=== PATIENT | female | born 1995 | race American Indian/Alaskan Native ===

== ENCOUNTER 2019-12-22 11:11 | Emergency (ER) | payer SELFPAY ==
[2019-12-22] MEDS ORDERED: ACETAMINOPHEN 325 MG TAB PO STA (11:19)
[2019-12-22] MEDS ORDERED: ONDANSETRON 4 MG/2 ML INJ ONE (11:33)
[2019-12-22] MEDS ORDERED: ONDANSETRON 4 MG/2 ML INJ IV ONE (11:34)
[2019-12-22] MEDS ORDERED: SODIUM CHLORIDE 0.9% 1000 ML 1,000 ML IV ONE ×3 (11:53→15:52)
[2019-12-22] MEDS ORDERED: SODIUM CHLORIDE 0.9% 1000 ML 2,000 ML ONE (11:55)
[2019-12-22 12:14] LABS: Basophils % (Auto) 0.3 % (0.0-1.8); Eosinophils # (Auto) 0.1 K/mm3 (0.0-0.4); Eosinophils % (Auto) 0.7 % (0.0-4.3); Hemoglobin 12.8 gm/dl (10.1-14.3); Lymphocytes # (Auto) 0.7 K/mm3 (1.2-5.4); Lymphocytes % (Auto) 6.3 % (13.4-35.0); Mean Corpuscular HGB Conc 32 % (30-34); Mean Corpuscular Volume 82 fl (79-97); Monocytes # (Auto) 0.8 K/mm3 (0.0-0.8); Monocytes % (Auto) 7.2 % (0.0-7.3); Platelet Count 203 K/mm3 (140-440); Red Blood Count 4.87 M/mm3 (3.65-5.03); Red Cell Distribution Width 14.1 % (13.2-15.2)
--- NOTE | 2019-12-22 12:20 | XRay Report ---
CHEST 1 VIEW INDICATION: fever cough. COMPARISON: None. FINDINGS: Support devices: None. Heart: Normal. Lungs/Pleura: No acute pulmonary or pleural findings. IMPRESSION: 1. No acute findings. Signer Name: Quinn Erickson MD Signed: 12/22/2019 12:16 PM Workstation Name: [id number]
[2019-12-22 12:32] LABS: Alanine Aminotransferase 9 units/L (7-56); Albumin 4.6 g/dL (3.9-5); BUN/Creatinine Ratio 15; Blood Urea Nitrogen 9 mg/dL (7-17); Calcium 9.5 mg/dL (8.4-10.2); Hemolysis Index 3
[2019-12-22 12:37] LABS: Bilirubin,Direct < 0.2 mg/dL (0-0.2)
[2019-12-22] MEDS ORDERED: PIPERACIL/TAZOBACTA 4.5/NS 100 4.5 GM/100 ML VIAL IV ONE (13:26)
[2019-12-22 14:47] LABS: Bilirubin,Urine NEG (Negative); Blood,Urine LG (Negative); Color,Urine Yellow (Yellow); Mucus,Urine FEW /HPF; Protein,Urine <15 mg/dL mg/dL (Negative); Urobilinogen,Urine < 2.0 mg/dL (<2.0); WBC,Urine < 1.0 /HPF (0.0-6.0)
--- NOTE | 2019-12-22 15:45 | Emergency Department Report ---
<GLENN GIBSON - Last Filed: 12/22/19 23:06> ED Abdominal Pain HPI - General Chief Complaint: Abdominal Pain Stated Complaint: FLU SYM/ABD PAIN/COUGH Time Seen by Provider: 12/22/19 11:52 - Related Data Previous Rx's Medication Instructions Recorded Last Taken Type Ondansetron [Zofran Odt] 4 mg PO Q8HR #6 tab.rapdis 12/22/19 Unknown Rx oxyCODONE /ACETAMINOPHEN [Percocet 1 tab PO Q6HR PRN #10 tablet 12/22/19 Unknown Rx 5/325] Allergies Allergy/AdvReac Type Severity Reaction Status Date / Time No Known Allergies Allergy Unverified 12/22/19 11:13 ED Past Medical Hx - Medications Home Medications: Home Medications Medication Instructions Recorded Confirmed Last Taken Type Ondansetron [Zofran Odt] 4 mg PO Q8HR #6 tab.rapdis 12/22/19 Unknown Rx oxyCODONE /ACETAMINOPHEN [Percocet 1 tab PO Q6HR PRN #10 tablet 12/22/19 Unknown Rx 5/325] ED Course - Reevaluation(s) Reevaluation #2: 12/22/19 16:54 DR Tirado notified of ct result, will come to evaluate patient. ED Medical Decision Making - Lab Data Result diagrams: 12/22/19 11:45 12/22/19 11:45 ED Disposition Clinical Impression: Fever, Abdominal pain Disposition: DC-01 TO HOME OR SELFCARE Is pt being admited?: No Condition: Stable Prescriptions: oxyCODONE /ACETAMINOPHEN [Percocet 5/325] 1 tab PO Q6HR PRN #10 tablet PRN Reason: Pain Ondansetron [Zofran Odt] 4 mg PO Q8HR #6 tab.rapdis Referrals: WARD MARSHALL MD [Primary Care Provider] - 3-5 Days <LORENA MUIR - Last Filed: 12/23/19 15:42> ED Abdominal Pain HPI - General Source: patient Mode of arrival: Ambulatory Limitations: No Limitations - History of Present Illness Initial Comments: 24-year-old female who states that she was well yesterday. Early this morning she experienced left flank pain which seems to radiate around to the lower quadrants of the abdomen. She denied diarrhea nausea or vomiting. She presented to the emergency department with SIRS and a temperature of 103. She states she has had no prior abdominal surgery. She denied vaginal discharge or problems with her periods. She denied any symptoms. She states she has not had pain like this in the in the past. MD Complaint: abdominal pain -: Gradual, days(s) Location: LLQ, RLQ Radiation: none Migration to: no migration, L flank (Started in the left flank and radiated forward) Severity scale (0 -10): 4 Quality: aching Consistency: constant Improves With: nothing Worsens With: nothing Associated Symptoms: denies other symptoms ED Review of Systems ROS: Stated complaint: FLU SYM/ABD PAIN/COUGH Other details as noted in HPI Constitutional: denies: chills, fever Eyes: denies: eye pain, eye discharge, vision change ENT: denies: ear pain, throat pain Respiratory: denies: cough, shortness of breath, wheezing Cardiovascular: denies: chest pain, palpitations Endocrine: no symptoms reported Gastrointestinal: abdominal pain. denies: nausea, diarrhea Genitourinary: denies: urgency, dysuria, discharge Musculoskeletal: denies: back pain, joint swelling, arthralgia Skin: denies: rash, lesions Neurological: denies: headache, weakness, paresthesias Psychiatric: denies: anxiety, depression Hematological/Lymphatic: denies: easy bleeding, easy bruising ED Past Medical Hx - Past Medical History Previous Medical History?: No - Social History Smoking Status: Never Smoker Substance Use Type: None ED Physical Exam - General Limitations: No Limitations General appearance: alert, in no apparent distress - Head Head exam: Present: atraumatic, normocephalic - Eye Eye exam: Present: normal appearance. Absent: scleral icterus - ENT ENT exam: Present: mucous membranes moist - Neck Neck exam: Present: normal inspection. Absent: tenderness, meningismus - Respiratory Respiratory exam: Present: normal lung sounds bilaterally. Absent: respiratory distress - Cardiovascular Cardiovascular Exam: Present: normal rhythm, tachycardia. Absent: systolic mur mur, diastolic murmur, rubs, gallop - GI/Abdominal GI/Abdominal exam: Present: soft, tenderness (Tenderness in bilateral lower quadrants which is mild to moderate without peritoneal signs.), normal bowel sounds. Absent: distended, guarding, rebound, rigid - Extremities Exam Extremities exam: Present: normal inspection - Back Exam Back exam: Present: normal inspection. Absent: CVA tenderness (R), CVA tenderness (L) - Neurological Exam Neurological exam: Present: alert, oriented X3, CN II-XII intact. Absent: motor sensory deficit - Psychiatric Psychiatric exam: Present: normal affect, normal mood - Skin Skin exam: Present: warm, dry, intact, normal color. Absent: rash ED Course Vital Signs 12/22/19 12/22/19 12/22/19 11:16 11:41 12:24 Temperature 103.0 F H Pulse Rate 144 H 123 H Respiratory 18 17 29 H Rate Blood Pressure 113/67 Blood Pressure [Left] O2 Sat by Pulse 99 99 Oximetry 12/22/19 12/22/19 12/22/19 12:29 12:30 13:00 Temperature 101.4 F H Pulse Rate 131 H 133 H 126 H Respiratory 18 22 25 H Rate Blood Pressure 96/57 103/58 Blood Pressure 96/57 [Left] O2 Sat by Pulse 100 100 100 Oximetry 12/22/19 12/22/19 12/22/19 14:00 14:46 15:46 Temperature 103.2 F H Pulse Rate 118 H 117 H Respiratory 21 14 Rate Blood Pressure 108/54 91/48 91/48 Blood Pressure [Left] O2 Sat by Pulse 99 99 98 Oximetry 12/22/19 12/22/19 12/22/19 16:00 16:16 16:23 Temperature Pulse Rate 129 H 133 H 123 H Respiratory 28 H 16 22 Rate Blood Pressure 94/67 99/62 Blood Pressure 96/69 [Left] O2 Sat by Pulse 99 100 100 Oximetry 12/22/19 12/22/19 12/22/19 16:45 17:00 17:15 Temperature Pulse Rate 122 H 111 H 111 H Respiratory 20 24 27 H Rate Blood Pressure 96/69 110/80 93/65 Blood Pressure [Left] O2 Sat by Pulse 100 100 99 Oximetry 12/22/19 12/22/19 12/22/19 17:18 17:45 18:15 Temperature 102.9 F H Pulse Rate 110 H 133 H 113 H Respiratory 28 H 21 29 H Rate Blood Pressure 101/67 88/64 Blood Pressure 110/80 [Left] O2 Sat by Pulse 95 100 97 Oximetry 12/22/19 12/22/19 12/22/19 18:31 18:45 19:00 Temperature Pulse Rate 142 H 120 H 114 H Respiratory 22 13 19 Rate Blood Pressure 97/61 97/61 96/48 Blood Pressure [Left] O2 Sat by Pulse 89 99 97 Oximetry 12/22/19 12/22/19 12/22/19 19:15 19:30 19:45 Temperature Pulse Rate 115 H 112 H 133 H Respiratory 25 H 16 19 Rate Blood Pressure 96/48 105/42 96/48 Blood Pressure [Left] O2 Sat by Pulse 97 97 Oximetry 12/22/19 12/22/19 12/22/19 20:00 20:15 20:30 Temperature Pulse Rate 108 H 104 H 108 H Respiratory 20 20 20 Rate Blood Pressure 103/51 103/51 96/45 Blood Pressure [Left] O2 Sat by Pulse 99 99 99 Oximetry 12/22/19 12/22/19 12/22/19 20:45 21:00 21:15 Temperature Pulse Rate 106 H 108 H 93 H Respiratory 19 17 15 Rate Blood Pressure 96/45 95/65 95/65 Blood Pressure [Left] O2 Sat by Pulse 100 75 L 97 Oximetry 12/22/19 12/22/19 12/22/19 21:30 21:45 22:00 Temperature Pulse Rate 94 H 96 H 110 H Respiratory 18 23 12 Rate Blood Pressure 109/69 109/69 109/67 Blood Pressure [Left] O2 Sat by Pulse 95 94 85 Oximetry 12/22/19 22:15 Temperature Pulse Rate 114 H Respiratory 13 Rate Blood Pressure 109/67 Blood Pressure [Left] O2 Sat by Pulse 100 Oximetry - Reevaluation(s) Reevaluation #1: Patient was given Zosyn empirically. She was given IV fluids. She remained somewhat tachycardic. A CT of the abdomen and pelvis has been performed. Results are pending. Dr. Tirado of the hospitalist states he will come down and make a final disposition. The current emergency physician is aware of what is pending above. Patient remains febrile with temperature of 103. She was given Tylenol. 12/22/19 15:51 Reevaluation #2: Patient was seen by the hospitalist and discharged. 12/23/19 15:41 ED Medical Decision Making - Lab Data Result diagrams: 12/22/19 11:45 12/22/19 11:45 Laboratory Results - last 24 hr 12/22/19 12/22/19 12/22/19 11:45 11:45 11:45 WBC 11.2 H RBC 4.87 Hgb 12.8 Hct 40.0 MCV 82 MCH 26 L MCHC 32 RDW 14.1 Plt Count 203 Lymph % (Auto) 6.3 L [place] % (Auto) 7.2 Eos % (Auto) 0.7 Baso % (Auto) 0.3 Lymph # 0.7 L [place] # 0.8 Eos # 0.1 Baso # 0.0 Seg Neutrophils % 85.5 H Seg Neutrophils # 9.6 H Sodium 138 Potassium 3.5 L Chloride 100.5 Carbon Dioxide 20 L Anion Gap 21 BUN 9 Creatinine 0.6 L Estimated GFR > 60 BUN/Creatinine Ratio 15 Glucose 105 H Lactic Acid 2.30 H* Calcium 9.5 Total Bilirubin 0.30 Direct Bilirubin < 0.2 Indirect Bilirubin 0.1 AST 19 ALT 9 Alkaline Phosphatase 90 Total Protein 7.8 Albumin 4.6 Albumin/Globulin Ratio 1.4 HCG, Qual Urine Color Urine Turbidity Urine pH Ur Specific Trail Urine Protein Urine Glucose (UA) Urine Ketones Urine Blood Urine Nitrite Urine Bilirubin Urine Urobilinogen Ur Leukocyte Esterase Urine WBC (Auto) Urine RBC (Auto) U Epithel Cells (Auto) Urine Mucus Influenza A (Rapid) Influenza B (Rapid) 12/22/19 12/22/19 12/22/19 11:45 11:48 13:07 WBC RBC Hgb Hct MCV MCH MCHC RDW Plt Count Lymph % (Auto) [place] % (Auto) Eos % (Auto) Baso % (Auto) Lymph # [place] # Eos # Baso # Seg Neutrophils % Seg Neutrophils # Sodium Potassium Chloride Carbon Dioxide Anion Gap BUN Creatinine Estimated GFR BUN/Creatinine Ratio Glucose Lactic Acid Calcium Total Bilirubin Direct Bilirubin Indirect Bilirubin AST ALT Alkaline Phosphatase Total Protein Albumin Albumin/Globulin Ratio HCG, Qual Negative Urine Color Yellow Urine Turbidity Slightly-cloudy Urine pH 5.[address] 1.016 Urine Protein <15 mg/dl Urine Glucose (UA) Neg Urine Ketones Neg Urine Blood Lg Urine Nitrite Neg Urine Bilirubin Neg Urine Urobilinogen < 2.0 Ur Leukocyte Esterase Neg Urine WBC (Auto) < 1.0 Urine RBC (Auto) 15.0 U Epithel Cells (Auto) 11.0 Urine Mucus Few Influenza A (Rapid) Negative Influenza B (Rapid) Negative 12/22/19 14:31 WBC RBC Hgb Hct MCV MCH MCHC RDW Plt Count Lymph % (Auto) [place] % (Auto) Eos % (Auto) Baso % (Auto) Lymph # [place] # Eos # Baso # Seg Neutrophils % Seg Neutrophils # Sodium Potassium Chloride Carbon Dioxide Anion Gap BUN Creatinine Estimated GFR BUN/Creatinine Ratio Glucose Lactic Acid 1.30 Calcium Total Bilirubin Direct Bilirubin Indirect Bilirubin AST ALT Alkaline Phosphatase Total Protein Albumin Albumin/Globulin Ratio HCG, Qual Urine Color Urine Turbidity Urine pH Ur Specific Trail Urine Protein Urine Glucose (UA) Urine Ketones Urine Blood Urine Nitrite Urine Bilirubin Urine Urobilinogen Ur Leukocyte Esterase Urine WBC (Auto) Urine RBC (Auto) U Epithel Cells (Auto) Urine Mucus Influenza A (Rapid) Influenza B (Rapid) Critical care attestation.: If time is entered above; I have spent that time in minutes in the direct care of this critically ill patient, excluding procedure time.
[2019-12-22] MEDS ORDERED: ACETAMINOPHEN 325 MG TAB PO ONE (16:13)
--- NOTE | 2019-12-22 16:35 | Cat Scan Report ---
CT ABDOMEN AND PELVIS WITH IV CONTRAST INDICATION: lower abd and l flank pain. COMPARISON: None available. TECHNIQUE: All CT scans at this facility use dose modulation, automated exposure control, iterative reconstructi on or weight based dosing, when appropriate, to reduce radiation dose to as low as reasonably achieva ble. FINDINGS: Lung Bases: No significant abnormality. Skeletal System: No acute abnormality. ABDOMEN: Liver: No significant abnormality. Gallbladder: No significant abnormality. Bile Ducts: No significant abnormality. Pancreas: No significant abnormality. Spleen: No significant abnormality. Adrenals: No significant abnormality. Right Kidney: No significant abnormality. Left Kidney: No significant abnormality. Upper GI tract: Stomach and duodenum are unremarkable. There is mild wall thickening within distal lo ops of small bowel midline lower abdomen. Lymph Nodes: No significant adenopathy. Aorta: No significant abnormality. Additional Findings: No significant abnormality. PELVIS: Colon: No acute abnormality. Urinary Bladder and Distal Ureters: No significant abnormality. Appendix: No significant abnormality. Lymph Nodes: No significant adenopathy. Additional Findings: There is mild heterogeneous enhancement within the myometrium which may be due t o the presence of uterine fibroids but is nonspecific. Ovaries are unremarkable. IMPRESSION: 1. Mild small bowel wall thickening in the lower abdomen with mild injection/stranding mesentery. Th trang findings are suggestive of enteritis. The terminal ileum is unremarkable. 2. Uterine/myometrium enhancement is heterogeneous, this could be due to the presence of fibroids bu t is nonspecific. Signer Name: Quinn Erickson MD Signed: 12/22/2019 4:31 PM Workstation Name: [id number]
--- NOTE | 2019-12-22 17:44 | Event Note ---
Date: 12/22/19 Patient reevaluated Patient has been vomiting 4-5 times Now resolved Abdominal pain better Discharge diagnosis acute gastroenteritis Clear liquids for 1 day and then advance diet Patient was advised Gatorade and apple juice no orange juice. Zofran 4 mg ODT every 6 as needed Low potassium borderline supplemented Discharge home Follow-up with PCP
[2019-12-22] MEDS ORDERED: POTASSIUM CHLORIDE ER 20 MEQ TAB PO ONE (18:00)
[2019-12-22 22:20] VITALS: BP 109/67
== END 2019-12-22 21:00 | disposition home or self-care (01) ==
LOC: ED 11:11
DX: R10.30 Lower abdominal pain, unspecified (principal); R50.9 Fever, unspecified; R05 Cough; R65.10 Systemic inflammatory response syndrome (SIRS) of non-infectious origin without acute organ dysfunction; Z79.899 Other long term (current) drug therapy
CPT/HCPCS: 36415; 71045; 74177; 80048; 80076; 81001; 82140; 84703; 85025; 87040; 87086; 87400; 93005; 93010; 96365; 96375; 99285; J2405; J2543; J7030; Q9967

== ENCOUNTER 2020-10-06 20:15 | Inpatient (IN) | payer MEDICAID ==
[2020-10-06] MEDS ORDERED: ZOLPIDEM 5 MG TAB PO PRN (22:37)
[2020-10-06] MEDS ORDERED: BUTORPHANOL 2 MG/1 ML INJ IV PRN (22:37)
[2020-10-06] MEDS ORDERED: LACTATED RINGERS 1,000 ML IV SCH (22:45)
[2020-10-07] MEDS ORDERED: DINOPROSTONE 10 MG VAG SUPP VG ONE (00:30)
[2020-10-07 00:38] LABS: Hematocrit 35.3 % (30.3-42.9); Hemoglobin 11.8 gm/dl (10.1-14.3); Mean Corpuscular HGB Conc 33 % (30-34); Mean Corpuscular Volume 82 fl (79-97); Platelet Count 127 K/mm3 (140-440); Red Blood Count 4.29 M/mm3 (3.65-5.03); Red Cell Distribution Width 17.1 % (13.2-15.2)
[2020-10-07] MEDS ORDERED: OXYTOCIN DRIP 30,000 MILLIUNITS/500 ML BAG IV ONE (01:32)
[2020-10-07] MEDS ORDERED: ACETAMINOPHEN 325 MG TAB PO PRN (01:35)
[2020-10-07] MEDS ORDERED: PROMETHAZINE 25 MG TAB PO PRN ×2 (01:35→20:25)
[2020-10-07] MEDS ORDERED: MINERAL OIL 30 ML ORAL LIQD PO PRN (01:35)
[2020-10-07] MEDS ORDERED: AMPICILLIN/NS 2 GM/100 ML 2 GM/100 ML BAG IV ONE (01:35)
[2020-10-07] MEDS ORDERED: LIDOCAINE (2%) 20 MG/1 ML VIAL 20 ML MDV INFILTRATI ONE (01:35)
[2020-10-07] MEDS ORDERED: TERBUTALINE 1 MG/1 ML INJ SUB-Q PRN (01:35)
[2020-10-07] MEDS ORDERED: OXYTOCIN DRIP 30 UNITS/500 ML BAG IV SCH (02:00)
[2020-10-07] MEDS: LACTATED RINGERS 1,000 ML IV SCH ×6 (03:01→14:15)
--- NOTE | 2020-10-07 05:13 | History and Physical Report ---
History of Present Illness Date of examination: 10/07/20 Date of admission: 10/06/20 20:15 Chief complaint: Induction of labor for intrauterine growth restriction History of present illness: 25-year-old -0-0-1 at 39+1 weeks who presents for induction of labor deck secondary to asymmetrical intrauterine growth restriction. The patient is a transfer care at 29 weeks estimated gestational age. course is also complicated by positive GBS status, pericardial effusion, and intrauterine growth restriction. Past History Past Medical History: no pertinent history Past Surgical History: no surgical history Social history: single - Obstetrical History Expected Date of Delivery: 10/13/20 Actual Gestation: 39 Week(s) 1 Day(s) : 2 Para: 1 Hx # Term Pregnancies: 1 Number of Pregnancies: 0 Spontaneous Abortions: 0 Induced : 0 Number of Living Children: 1 Medications and Allergies Allergies Allergy/AdvReac Type Severity Reaction Status Date / Time No Known Allergies Allergy Unverified 12/22/19 11:13 Home Medications Medication Instructions Recorded Confirmed Last Taken Type Ondansetron [Zofran Odt] 4 mg PO Q8HR #6 tab.rapdis 12/22/19 Unknown Rx oxyCODONE /ACETAMINOPHEN [Percocet 1 tab PO Q6HR PRN #10 tablet 12/22/19 Unknown Rx 5/325] Active Meds: Active Medications Acetaminophen (Tylenol) 650 mg PO Q4H PRN PRN Reason: Pain, Mild (1-3) Butorphanol Tartrate (Stadol) 2 mg IV Q2H PRN PRN Reason: Labor Pain Ephedrine Sulfate (Ephedrine Sulfate) 10 mg IV Q2M PRN PRN Reason: Hypotension Lactated Ringer's (Lactated Ringers) 1,000 mls @ 125 mls/hr IV DIRECT VADIM Last Admin: 10/07/20 03:01 Dose: 125 mls/hr Documented by: Oxytocin/Sodium Chloride (Pitocin/Ns 30 Unit/500ml) 30 units in 500 mls @ 40 mls/hr IV TITR VADIM; Protocol Ampicillin Sodium (Ampicillin/Ns 1 Gm/50 Ml) 1 gm in 50 mls @ 100 mls/hr IV Q4HR VADIM; Protocol Mineral Oil (Mineral Oil) 30 ml PO QHS PRN PRN Reason: Constipation Promethazine HCl (Phenergan) 25 mg PO Q6H PRN PRN Reason: Nausea And Vomiting Terbutaline Sulfate (Brethine) 0.25 mg SUB-Q ONCE PRN PRN Reason: Hyperstimulation/Hypertonicity Zolpidem Tartrate (Ambien) 5 mg PO QHS PRN PRN Reason: Sleep Review of Systems All systems: negative Genitourinary: no leakage of fluid - Vital Signs Vital signs: Vital Signs Pulse BP 126 H 123/73 10/06/20 20:39 10/06/20 20:39 Temp Pulse Resp BP Pulse Ox 97.9 F 106 H 18 102/60 92 10/07/20 04:30 10/07/20 05:07 10/07/20 04:30 10/07/20 04:44 10/07/20 05:07 - Physical Exam Breasts: Positive: deferred Cardiovascular: Regular rate Lungs: Positive: Clear to auscultation Abdomen: Positive: normal appearance - Obstetrical Cervical Dilatation: 4 Results Result Diagrams: 10/07/20 00:14 Abnormal lab results 10/07/20 Range/Units 00:14 MCH 27 L (28-32) pg RDW 17.1 H (13.2-15.2) % Plt Count 127 L (140-440) K/mm3 All other labs normal. Assessment and Plan - Patient Problems (1) IUGR (intrauterine growth restriction) Current Visit: Yes Status: Acute Plan to address problem: Admit for induction of labor (2) IUGR (intrauterine growth restriction) Current Visit: Yes Status: Acute
[2020-10-07] MEDS: AMPICILLIN/NS 1 GM/50 ML 1 GM/50 ML BAG IV SCH ×3 (06:45→16:37)
[2020-10-07] MEDS: OXYTOCIN DRIP 30 UNITS/500 ML BAG IV SCH ×2 (08:50→17:03)
[2020-10-07] MEDS ORDERED: ONDANSETRON 4 MG/2 ML INJ IV PRN ×2 (10:00→20:25)
--- NOTE | 2020-10-07 10:00 | Anesthesia Consultation ---
Anesthesia Consult and Med Hx Date of service: 10/07/20 - Airway Anesthetic Teeth Evaluation: Good ROM Head & Neck: Adequate Mental/Hyoid Distance: Adequate Mallampati Class: Class II Intubation Access Assessment: Probably Good - Pulmonary Exam CTA: Yes - Cardiac Exam Cardiac Exam: RRR - Pre-Operative Health Status ASA Pre-Surgery Classification: ASA2 Proposed Anesthetic Plan: Epidural - Pulmonary Hx Smoking: No Hx Asthma: No COPD: No Hx Pneumonia: No Hx Sleep Apnea: No - Cardiovascular System Hx Hypertension: No Hx Heart Attack/AMI: No Hx Angina: No - Central Nervous System Hx Seizures: No Hx Psychiatric Problems: No - Gastrointestinal Hx Gastroesophageal Reflux Disease: No - Endocrine Hx Renal Disease: No Hx End Stage Renal Disease: No Hx Insulin Dependent Diabetes: No Hx Non-Insulin Dependent Diabetes: No Hx Hypothyroidism: No Hx Hyperthyroidism: No - Hematic Hx Anemia: No Hx Sickle Cell Disease: No - Other Systems Hx Alcohol Use: No
[2020-10-07] MEDS ORDERED: NALOXONE 2 MG/2 ML INJ IV PRN (10:30)
[2020-10-07] MEDS ORDERED: diphenhydrAMINE 50 MG/ML VIAL IV PRN (10:30)
[2020-10-07] MEDS ORDERED: NalbUPHINE 10 MG/1 ML INJ IV PRN (10:30)
--- NOTE | 2020-10-07 10:30 | Progress Note ---
Labor Epidural - Labor Epidural Start Time: 10:08 Stop Time: 10:26 Performed by:: RANGEL MITCHELL Procedure: Patient is requesting a laboring epidural for laboring pain. Patient IDed, H&P reviewed, all questions and concerns were answered, and consent was signed. Timeout was performed at bedside. Patient in sitting position. Sterile prep and drape was performed. 3ml of 1% lidocaine skin wheal at L[3]- L [4]. 18- gauge Touhy epidural needle was advanced to loss of resistance with air technique. Negative CSF negative blood. Epidural catheter advanced to [15] centimeters. [-] Aspiration [-] test dose. Sterile dressing applied. Patient tolerated procedure.
[2020-10-07] MEDS ORDERED: fentaNYL-BUPIV 2 MCG/ML-0.125% 200 MCG/100 ML BAG EPIDURAL SCH (11:00)
[2020-10-07] MEDS: ePHEDrine SULFATE 50 MG/1 ML INJ IV PRN ×2 (12:41→12:57)
--- NOTE | 2020-10-07 16:04 | Event Note ---
Date: 10/07/20 Pt comfortable with epidural. Pt experienced SROM at 1400 pm. SVE: /2. Continue routine intrapartum care.
--- NOTE | 2020-10-07 17:25 | Procedure Note ---
OB Delivery Note - Delivery Date of Delivery: 10/07/20 Surgeon: TOBY MAIN Estimated blood loss: other (400 mL) - Vaginal Delivery presentation: vertex Delivery position: OA Intrapartum events: PROM->1hr before delivery, decreased FHT variability, mult.variable deceleratio Delivery induction: oxytocin Delivery augmentation: pitocin Delivery monitor: external FHT, external uterine Route of delivery: Delivery placenta: spontaneous Episiotomy: none Delivery laceration: 1st degree Delivery repair: vicryl Anesthesia: epidural - A at 1 minute: 6 at 5 minutes: 9 Gender: Male (3290g (7lb 4oz) @ 1507 pm)
[2020-10-07] MEDS ORDERED: miSOPROStol 200 MCG TAB PR ONE (19:26)
[2020-10-07] MEDS ORDERED: METHYLERGONOVINE MALEATE 0.2 MG/ML VIAL IM ONE (19:28)
[2020-10-07] MEDS ORDERED: WITCH HAZEL/ GLYCERIN PAD TP PRN (20:25)
[2020-10-07] MEDS ORDERED: HYDROcodone/ACETAMINOPHEN 5-325 MG TAB PO PRN (20:25)
[2020-10-07] MEDS ORDERED: MAGNESIUM HYDROXIDE (MOM) ORAL LIQD UDC PO PRN (20:25)
[2020-10-07] MEDS ORDERED: LANOLIN/ZINC/DIMETHICONE (LANSINOH) 7 GM TP PRN ×2 (20:25)
[2020-10-07] MEDS ORDERED: BENZOCAINE/MENTHOL 20/0.5% TOP SPRAY 56 GM TP PRN (20:25)
[2020-10-07] MEDS ORDERED: PROMETHAZINE 25 MG RECT SUPP PR PRN (20:25)
[2020-10-07] MEDS ORDERED: diphenhydrAMINE 25 MG CAP PO PRN (20:25)
[2020-10-07] MEDS: IBUPROFEN 600 MG TAB PO SCH (21:40)
[2020-10-07] MEDS: FERROUS SULFATE 325 MG TAB PO SCH (21:40)
[2020-10-08] MEDS: IBUPROFEN 600 MG TAB PO SCH ×2 (04:04→12:28)
[2020-10-08] MEDS ORDERED: DIPHtheria,PERTUSSIS(ACELL),TETANUS VACCINE/PF 0.5 ML VIAL IM ONE (06:00)
--- NOTE | 2020-10-08 07:46 | Progress Note ---
Assessment and Plan A: PPD1 s/p at term. P: Routine care with anticipated discharge at 24hrs . Subjective - Subjective Date of service: 10/08/20 Principal diagnosis: S/P at Term Interval history: PPD1 s/p at term. Patient has no complaints at this time. Patient reports: appetite normal, voiding normally, pain well controlled, ambulating normally : doing well Objective - Vital Signs Latest vital signs: Vital Signs Temp Pulse Resp BP BP Pulse Ox 10/08/20 05:40 98.0 F 110 H 20 95/43 98 10/08/20 01:49 98.2 F 113 H 20 112/77 95 10/07/20 20:30 99.1 F 114 H 18 116/66 98 10/07/20 19:21 111 H 100 10/07/20 19:16 95 H 104/65 100 10/07/20 19:11 110 H 87 10/07/20 19:06 119 H 96 10/07/20 19:01 105 H 99/56 100 10/07/20 18:56 103 H 100 10/07/20 18:51 107 H 100 10/07/20 18:46 112 H 108/62 97 10/07/20 18:45 98.8 F 102 H 16 108/62 100 10/07/20 18:41 123 H 98 10/07/20 18:36 105 H 98 10/07/20 18:31 113 H 106/69 98 10/07/20 18:26 114 H 98 10/07/20 18:21 109 H 100 10/07/20 18:20 120 H 106/72 10/07/20 18:16 115 H 106/60 100 10/07/20 18:11 112 H 98 10/07/20 18:06 109 H 98 10/07/20 18:01 114 H 100/65 100 10/07/20 18:00 98.4 F 16 10/07/20 17:56 123 H 100 10/07/20 17:51 115 H 100 10/07/20 17:46 120 H 100 10/07/20 17:45 98.1 F 126 H 16 91/61 10/07/20 17:41 119 H 99 10/07/20 17:36 123 H 96 10/07/20 17:31 114 H 103/66 98 10/07/20 17:30 98.3 F 110 H 18 103/66 99 10/07/20 17:26 123 H 98 10/07/20 17:24 123 H 102/59 10/07/20 17:21 111 H 100 10/07/20 17:16 114 H 98 10/07/20 17:14 126 H 110/65 10/07/20 17:11 100 10/07/20 17:06 146 H 99 10/07/20 17:05 142 H 117/79 10/07/20 17:01 132 H 100 10/07/20 16:56 125 H 100 10/07/20 16:55 125 H 102/64 10/07/20 16:51 119 H 98 10/07/20 16:46 131 H 99 10/07/20 16:44 123 H 94/54 10/07/20 16:41 130 H 100 10/07/20 16:36 125 H 99 10/07/20 16:34 131 H 90/51 10/07/20 16:31 118 H 100 10/07/20 16:26 110 H 99 10/07/20 16:25 118 H 98/56 10/07/20 16:21 110 H 99 10/07/20 16:16 112 H 100 10/07/20 16:14 116 H 98/56 10/07/20 16:11 107 H 100 10/07/20 16:06 115 H 100 10/07/20 16:05 118 H 106/59 10/07/20 16:01 125 H 100 10/07/20 15:56 122 H 99 10/07/20 15:55 118 H 96/61 10/07/20 15:51 112 H 100 10/07/20 15:46 130 H 99 10/07/20 15:44 113 H 82/53 10/07/20 15:41 101 H 100 10/07/20 15:36 115 H 98 10/07/20 15:34 121 H 80/47 10/07/20 15:31 120 H 99 10/07/20 15:26 110 H 100 10/07/20 15:24 116 H 87/54 10/07/20 15:21 115 H 100 10/07/20 15:16 107 H 85/52 99 10/07/20 15:11 109 H 99 10/07/20 15:06 114 H 99 10/07/20 15:05 110 H 100/55 10/07/20 15:00 118 H 98 10/07/20 14:56 110 H 96/52 10/07/20 14:55 99 H 99 10/07/20 14:49 117 H 98 10/07/20 14:46 107 H 105/62 10/07/20 14:44 120 H 88/50 100 10/07/20 14:39 112 H 99 10/07/20 14:36 109 H 97/58 10/07/20 14:34 119 H 99 10/07/20 14:29 113 H 99 10/07/20 14:26 113 H 95/51 10/07/20 14:24 120 H 99 10/07/20 14:20 97.8 F 16 10/07/20 14:19 106 H 99 10/07/20 14:16 111 H 98/56 10/07/20 14:14 122 H 99 10/07/20 14:09 123 H 99 10/07/20 14:05 112 H 104/59 10/07/20 14:04 107 H 100 10/07/20 13:59 100 H 98 10/07/20 13:54 112 H 84/46 96 10/07/20 13:49 112 H 98 10/07/20 13:45 112 H 92/50 10/07/20 13:44 106 H 99 10/07/20 13:39 110 H 99 10/07/20 13:34 109 H 87/51 99 10/07/20 13:29 108 H 97 10/07/20 13:24 107 H 93/51 98 10/07/20 13:19 106 H 98 10/07/20 13:18 103 H 94/52 10/07/20 13:16 108 H 85/48 10/07/20 13:14 99 H 95/57 97 10/07/20 13:09 97 H 99 10/07/20 13:05 118 H 89/54 10/07/20 13:04 120 H 99 10/07/20 13:00 91 H 114/67 10/07/20 12:59 102 H 98 10/07/20 12:54 109 H 88/52 98 10/07/20 12:49 88 98 10/07/20 12:46 84 95/61 10/07/20 12:44 92 H 92/59 98 10/07/20 12:40 99 H 77/45 10/07/20 12:39 106 H 98 10/07/20 12:37 110 H 89/53 10/07/20 12:34 83 97 10/07/20 12:33 108 H 90/50 10/07/20 12:29 109 H 98 10/07/20 12:24 83 98 10/07/20 12:19 100 H 98 10/07/20 12:14 91 H 98 10/07/20 12:09 95 H 93 10/07/20 12:04 99 H 94 10/07/20 12:00 97.9 F 95 H 15 100/56 10/07/20 11:59 84 93 10/07/20 11:54 96 H 95 10/07/20 11:49 85 94 10/07/20 11:44 98 H 93/51 94 10/07/20 11:40 90 100/58 10/07/20 11:39 85 95 10/07/20 11:34 90 92 10/07/20 11:31 96 H 89 10/07/20 11:30 96 H 94/54 10/07/20 11:29 96 H 93 10/07/20 11:24 95 H 93 10/07/20 11:19 98 H 94 10/07/20 11:15 86 103/57 10/07/20 11:14 103 H 93 10/07/20 11:09 103 H 93 10/07/20 11:04 78 95 10/07/20 11:03 89 89 10/07/20 10:59 102 H 93 10/07/20 10:58 102 H 103/57 10/07/20 10:56 118 H 89/51 10/07/20 10:54 99 H 88/53 93 10/07/20 10:52 82 98/57 10/07/20 10:49 97 H 97/54 94 10/07/20 10:48 99 H 91/50 10/07/20 10:46 101 H 96/55 10/07/20 10:44 103 H 96/55 94 10/07/20 10:42 98 H 101/52 10/07/20 10:39 96 H 95/51 97 10/07/20 10:38 102 H 90/50 10/07/20 10:36 102 H 100/53 10/07/20 10:34 114 H 94 10/07/20 10:33 108 H 103/53 10/07/20 10:32 109 H 110/56 10/07/20 10:30 108 H 119/66 10/07/20 10:29 99 H 98 10/07/20 10:28 121 H 119/65 10/07/20 10:26 130 H 143/79 10/07/20 10:24 115 H 127/83 98 10/07/20 10:22 117 H 129/84 10/07/20 10:20 123 H 128/82 10/07/20 10:19 114 H 98 10/07/20 10:18 117 H 133/88 10/07/20 10:16 123 H 122/86 10/07/20 10:14 116 H 116/83 99 10/07/20 10:12 113 H 127/84 10/07/20 10:10 125 H 125/80 10/07/20 10:09 118 H 99 10/07/20 10:08 125 H 121/70 10/07/20 10:04 121 H 87 10/07/20 10:01 103 H 101/56 10/07/20 09:59 101 H 92 10/07/20 09:54 111 H 94 10/07/20 09:49 112 H 98 10/07/20 09:44 116 H 98 10/07/20 09:39 110 H 98 10/07/20 09:34 109 H 97 10/07/20 09:33 108 H 143/68 10/07/20 09:29 117 H 97 10/07/20 09:24 106 H 96 10/07/20 09:19 104 H 96 10/07/20 09:14 110 H 96 10/07/20 09:09 106 H 97 10/07/20 09:04 103 H 94 10/07/20 09:01 93 H 107/70 10/07/20 08:59 112 H 98 10/07/20 08:54 115 H 97 10/07/20 08:50 112 H 112/77 10/07/20 08:49 111 H 95 10/07/20 08:26 110 H 97 10/07/20 08:21 113 H 96 10/07/20 08:19 100 H 122/77 10/07/20 08:16 106 H 95 10/07/20 08:11 96 H 95 10/07/20 08:06 109 H 95 10/07/20 08:01 99 H 97 10/07/20 07:56 99 H 97 10/07/20 07:51 107 H 97 10/07/20 07:50 100 H 109/68 10/07/20 07:46 102 H 96 Intake and Output 10/07/20 10/07/20 10/08/20 15:59 23:59 07:59 Intake Total 3355.966 416.833 Output Total 700 550 Balance 2655.966 -133.167 Intake: IV 3355.966 56.833 AMPICILLIN/NS 1 GM/50 ML 50 1 gm In 50 ml @ 100 mls/ hr IV Q4HR [facility]IM Rx#: [id number] Lactated Ringers 1,000 ml 3290.833 @ 125 mls/hr IV DIRECT [facility]ADIM Rx#:[id number] PITOCin/NS 30 UNIT/500ML 15.133 56.833 30 units In 500 ml @ 2 MILLIUNITS/MIN 2 mls/hr IV TITR [facility]ADIM Rx#:[id number] Intake, Free Water 360 Output: Urine 700 550 Uretheral ([place]uzman) 700 Void 550 Other: Total, Output Amount 150 # Voids Void 1 Estimated Blood Loss 400 - Exam Breasts: Present: deferred Uterus: Present: firm, fundal height below umbilicus
--- NOTE | 2020-10-08 07:49 | Discharge Summary ---
Providers - Providers Date of Admission: 10/06/20 20:15 Date of discharge: 10/08/20 Attending physician: JOSE LEAL 10/07/20 20:25 Consult to Senior Java Engineer [CONS] Timed Reason For Exam: Primary care physician: JOSE LEAL Hospitalization Reason for admission: active labor, induction of labor, IUP at term Delivery: Episiotomy: none Laceration: 1st degree Other procedures: none complications: uterine atony Discharge diagnosis: IUP at term delivered baby: male Condition at discharge: Good Disposition: DC-01 TO HOME OR SELFCARE Plan - Discharge Medications Prescriptions: Ibuprofen [Motrin] 800 mg PO Q8HR PRN #30 tablet PRN Reason: Pain, Moderate (4-6) - Provider Discharge Summary Activity: no sex for 6 weeks, no heavy lifting 4 weeks, no strenuous exercise Diet: routine Instructions: routine Additional instructions: [] Smoking cessation referral if applicable(refer to patient education folder for contact #) [] Refer to [facility] Call your doctor immediately for: * Fever > 100.5 * Heavy vaginal bleeding ( >1 pad per hour) * Severe persistent headache * Shortness of breath * Reddened, hot, painful area to leg or breast * Drainage or odor from incision. * Keep incision clean and dry at all times and follow doctor's instructions regarding bathing/showering - Follow up plan Follow up: JOSE LEAL MD [Primary Care Provider] - 11/18/20
[2020-10-08] MEDS ORDERED: METHYLERGONOVINE MALEATE 0.2 MG/ML VIAL IM ONE (09:23)
[2020-10-08] MEDS ORDERED: miSOPROStol 200 MCG TAB ONE (09:23)
[2020-10-08 09:31] LABS: Hemoglobin 10.6 gm/dl (10.1-14.3)
[2020-10-08] MEDS: FERROUS SULFATE 325 MG TAB PO SCH (12:28)
--- NOTE | 2020-10-08 14:28 | Post Anesthesia Evaluation ---
- Post Anesthesia Evaluation Patient Participated: Yes Airway Patent: Yes Stable Respiratory Function: Yes Nausea/Vomiting: No Temp > 96.8F: Yes Pain Manageable: Yes Adequeate Hydration: Yes Anesthesia Complications: No Block Receding Appropriately: Yes Patient on Ventilator: No
[2020-10-08] MEDS ORDERED: MEASLES, MUMPS & RUBELLA 12,500 UNIT/0.5 ML VACCINE SUB-Q ONE (17:28)
[2020-10-08 19:30] VITALS: BP 104/67
== END 2020-10-08 19:45 | disposition home or self-care (01) | DRG 775 ==
LOC: LD 20:15 → OB 10-07 20:23
PROVIDERS: ADMIT Obstetrics & Gynecology; ATTEND Obstetrics & Gynecology
PROC: 10E0XZZ Delivery of Products of Conception, External Approach (ICD-10-PCS; principal; 2020-10-07)
PROC: 3E033VJ Introduction of Other Hormone into Peripheral Vein, Percutaneous Approach (ICD-10-PCS; 2020-10-07)
PROC: 0HQ9XZZ Repair Perineum Skin, External Approach (ICD-10-PCS; 2020-10-07)
PROC: 3E0R3BZ Introduction of Anesthetic Agent into Spinal Canal, Percutaneous Approach (ICD-10-PCS; 2020-10-07)
PROC: 00HU33Z Insertion of Infusion Device into Spinal Canal, Percutaneous Approach (ICD-10-PCS; 2020-10-07)
PROC: 3E0234Z Introduction of Serum, Toxoid and Vaccine into Muscle, Percutaneous Approach (ICD-10-PCS; 2020-10-08)
DX: O36.5930 Maternal care for other known or suspected poor fetal growth, third trimester, not applicable or unspecified (principal); Z37.0 Single live birth; O99.824 Streptococcus B carrier state complicating childbirth; Z3A.39 39 weeks gestation of pregnancy; O42.92 Full-term premature rupture of membranes, unspecified as to length of time between rupture and onset of labor; O76 Abnormality in fetal heart rate and rhythm complicating labor and delivery; O70.0 First degree perineal laceration during delivery; O62.2 Other uterine inertia; Z20.828 Contact with and (suspected) exposure to other viral communicable diseases; Z23 Encounter for immunization
CPT/HCPCS: 36415; 85014; 85018; 85027; 86592; 86850; 86900; 86901; G0378; J0290; J2210; J2590; J7120; U0003